=== PATIENT | female | born 1980 | race Caucasian/White ===

== ENCOUNTER → 2018-03-29 | Outpatient (CLI) | payer BC ==
[2014-06-07 07:33] VITALS: BP 162/102
[~2018-03-29] MED LIST: LORA1TAB47 PO; NORE1CAP PO
--- NOTE | 2018-03-29 17:26 | KCIC ---
Indication:Dysmenorrhea. Menorrhagia. TECHNIQUE: Grayscale, color Doppler and spectral waveform images of the pelvis obtained. COMPARISON: None FINDINGS: The uterus is anteverted and measures 10.6 x 3.4 x 4.5 cm (longitudinal, AP, transverse). 2.5 x 1.5 x 2.2 cm hypoechoic mass in the anterior mid uterine body most likely a fibroid. Endometrial stripe measures 2 mm in thickness and is within normal limits. No free pelvic fluid. The right ovary measures 2.7 x 2.5 x 2.2 cm and shows blood flow. The left ovary measures 2.8 x 2.3 x 3.2 cm and shows blood flow. IMPRESSION: 1. Single anterior mid uterine body fibroid. 2. No other acute findings. Electronically signed by: Isaias Hoffman DO (03/29/2018 5:22 PM) [facility]
== END | disposition home or self-care (01) ==
LOC: KCIC US 14:30
PROVIDERS: ATTEND Obstetrics & Gynecology
DX: D25.9 Leiomyoma of uterus, unspecified (principal)
CPT/HCPCS: 76856

== ENCOUNTER → 2018-08-11 | Outpatient (CLI) | payer BC ==
[2014-06-07 07:33] VITALS: BP 162/102
[2018-08-11 15:02] LABS: BILIRUBIN,URINE NEGATIVE (NEG); CLARITY,URINE CLEAR; COLOR,URINE YELLOW; NITRITE,URINE NEGATIVE (NEG); PROTEIN,URINE NEGATIVE (NEG-TRACE); UROBILINOGEN,URINE 0.2 mg/dL (0.2 mg/dL)
[2018-08-11 15:43] LABS: BASO % 1 % (0-3); EOS # 0.1 x10^3/uL (0.0-0.7); EOS % 1 % (0-3); HEMATOCRIT 43.7 % (36.0-47.0); LYMPH # 2.2 x10^3/uL (1.0-4.8); LYMPH % 24 % (24-48); MEAN CORPUSCULAR HEMOGLOBIN 30 pg (25-35); MEAN CORPUSCULAR HGB CONC 34 g/dL (31-37); MEAN CORPUSCULAR VOLUME 87 fL (79-100); MONO # 0.4 x10^3/uL (0.0-1.1); MONO % 5 % (0-9); NEUT # 6.7 x10^3uL (1.8-7.7); NEUT % 71 % (31-73); PLATELET COUNT 303 x10^3/uL (140-400); RED BLOOD COUNT 5.05 x10^6/uL (3.50-5.40); RED CELL DISTRIBUTION WIDTH 11.7 % (11.5-14.5); WHITE BLOOD COUNT 9.5 x10^3/uL (4.0-11.0)
[2018-08-11 16:01] LABS: BACTERIA,URINE FEW /HPF (0-FEW); RBC,URINE OCC /HPF (0-2); SQUAMOUS EPITHELIAL CELL,UR OCC /LPF
[2018-08-11 16:26] LABS: ALBUMIN 3.6 g/dL (3.4-5.0); ALBUMIN/GLOBULIN RATIO 0.8 (1.0-1.7); CALCIUM 9.9 mg/dL (8.5-10.1); CREATININE 1.2 mg/dL (0.6-1.0); POTASSIUM 4.3 mmol/L (3.5-5.1); TOTAL BILIRUBIN 0.2 mg/dL (0.2-1.0); TOTAL PROTEIN 8.2 g/dL (6.4-8.2)
--- NOTE | 2018-08-12 11:03 | NUR ---
FAXED PRE - OP TEST REPORTS TO ;S OFFICE FOR REVIEW [id number] 08/12/2018 AND RECEIVED TRANSMITTAL CONFIRMATION.
== END | disposition home or self-care (01) ==
LOC: SURGPAT 14:30
PROVIDERS: ATTEND Obstetrics & Gynecology
DX: Z01.818 Encounter for other preprocedural examination (principal); Z88.0 Allergy status to penicillin; Z88.2 Allergy status to sulfonamides
CPT/HCPCS: 36415; 80053; 81001; 85025; 87086

== ENCOUNTER 2018-08-19 05:56 | Observation (INO) | payer BC ==
[~2018-08-19] VITALS: Ht 152.4 cm; Wt 78.5 kg
[2018-08-19] VITALS (7 sets, daily range): BP systolic 89–112; BP diastolic 62–76
[2018-08-19] MEDS ORDERED: BUPIVACAINE-EPI 0.25%-1:200000 MPF 30 ML VIAL. ONE (06:23)
[2018-08-19 06:38] LABS: U PREG PATIENT NEGATIVE (NEG)
[2018-08-19] MEDS ORDERED: fentaNYL PF VIAL 100 MCG/2 ML VIAL IV PRN ×2 (07:00)
[2018-08-19] MEDS ORDERED: IV RINGERS,LACTATED 1000ML 1,000 ML IV SCH (07:00)
[2018-08-19] MEDS ORDERED: HYDROmorphone 2 MG/ML VIAL IV PRN (07:00)
[2018-08-19] MEDS ORDERED: MORPHINE SULFATE 2 MG/ML VIAL. IV PRN ×2 (07:00→09:45)
[2018-08-19] MEDS ORDERED: PROCHLORPERAZINE 10 MG/2 ML VIAL. IV PRN (07:00)
[2018-08-19] MEDS ORDERED: ONDANSETRON PF 4 MG/2 ML VIAL. IV PRN ×2 (07:00→09:45)
[2018-08-19] MEDS ORDERED: FAMOTIDINE 20 MG/2 ML VIAL ONE (07:01)
[2018-08-19] MEDS ORDERED: diphenhydrAMINE 50 MG/ML VIAL ONE (07:01)
[2018-08-19] MEDS ORDERED: DEXAMETHASONE SOD PHOS 4 MG/ML VIAL ONE (07:01)
[2018-08-19] MEDS ORDERED: ONDANSETRON PF 4 MG/2 ML VIAL. ONE (07:01)
[2018-08-19] MEDS ORDERED: LIDOCAINE 2% PF 5 ML VIAL. ONE (07:01)
[2018-08-19] MEDS ORDERED: ROCURONIUM 50 MG/5 ML VIAL. ONE (07:01)
[2018-08-19] MEDS ORDERED: PROPOFOL 20 ML IV ONE (07:01)
[2018-08-19] MEDS ORDERED: KETOROLAC 30 MG/ML INJ FOR OR. INJ ONE (07:01)
[2018-08-19] MEDS ORDERED: fentaNYL PF VIAL 100 MCG/2 ML VIAL ONE (07:01)
[2018-08-19] MEDS ORDERED: MIDAZOLAM HCL/PF 2 MG/2 ML VIAL. ONE (07:01)
[2018-08-19] MEDS ORDERED: CLINDAMYCIN 900MG PREMIX 50 ML IV ONE (07:29)
[2018-08-19] MEDS ORDERED: AZTREONAM IV Push 1 GM VIAL. IVP PRN (07:30)
[2018-08-19] MEDS ORDERED: CLINDAMYCIN 900MG PREMIX 50 ML IV PRN (07:30)
[2018-08-19] MEDS ORDERED: GLYCOPYRROLATE 1 MG/5 ML VIAL. ONE (09:21)
[2018-08-19] MEDS ORDERED: NEOSTIGMINE METHYLSULFATE 5 MG/5 ML SYRINGE. ONE (09:21)
[2018-08-19] MEDS ORDERED: SEVOFLURANE 61 TO 120 MINUTES. IH ONE (09:23)
[2018-08-19] MEDS ORDERED: ALBUTEROL SULFATE 2.5 MG/3 ML NEBU. ONE (09:33)
--- NOTE | 2018-08-19 09:39 | PDOC ---
BRIEF OPERATIVE NOTE Date: Aug 19, 2018 Pre-Op Diagnosis menorrhagia, uterine fibroids Post-Op Diagnosis same Procedure Performed LAVH with bilateral salpingectomy Surgeon Dr. Lesley Baires Mediation Commissioner [facility] Anesthesiologist Dr. Aguero Anesthesia Type: General Blood Loss 25cc IV Fluid 1L crystalloid Urine Output 550cc clear via mcconnell Specimens Obtained cervix, uterus with bilateral tubes Findings mildly enlarged fibroid uterus, normal bilateral tubes and ovaries Complications none Operative Note [id number] LESLEY BAIRES MD Aug 19, 2018 09:39
[2018-08-19] MEDS ORDERED: MAG HYDROX/ALUMINUM HYD/SIMETH 30 ML ORAL.SUSP PO PRN (09:45)
[2018-08-19] MEDS ORDERED: MAGNESIUM HYDROXIDE 2,400 MG/30 ML ORAL.SUSP. PO PRN (09:45)
[2018-08-19] MEDS ORDERED: 0.9 % SODIUM CHLORIDE 10 ML DISP.SYRIN. IV PRN (09:45)
[2018-08-19] MEDS ORDERED: diphenhydrAMINE 50 MG/ML VIAL IV PRN (09:45)
[2018-08-19] MEDS ORDERED: SIMETHICONE 80 MG TAB.CHEW PO PRN (09:45)
[2018-08-19] MEDS ORDERED: ALBUTEROL SULFATE 2.5 MG/3 ML NEBU. CONT NEB ONE (09:45)
[2018-08-19] MEDS ORDERED: oxyCODONE/APAP 5/325 1 TAB TABLET PO PRN (09:45)
[2018-08-19] MEDS ORDERED: ZOLPIDEM 5 MG TABLET. PO PRN (09:45)
[2018-08-19] MEDS ORDERED: HYDROcodone/APAP 5/325MG 1 TAB TABLET PO PRN (09:45)
[2018-08-19] MEDS ORDERED: LACTULOSE 20 GM/30 ML SOLUTION. PO PRN (09:45)
[2018-08-19] MEDS ORDERED: NALOXONE 0.4 MG/ML VIAL. IV PRN (09:45)
[2018-08-19] MEDS ORDERED: CALCIUM CARBONATE 500 MG TAB.CHEW PO PRN (09:45)
[2018-08-19] MEDS ORDERED: KETOROLAC 30 MG/ML VIAL. IV PRN (09:45)
--- NOTE | 2018-08-19 13:00 | OP ---
DATE OF SURGERY: 08/19/2018 PREOPERATIVE DIAGNOSES: Menorrhagia with uterine fibroids. POSTOPERATIVE DIAGNOSES: Menorrhagia with uterine fibroids. PROCEDURE: Laparoscopic-assisted vaginal hysterectomy with bilateral salpingectomy. SURGEON: Zane Edwards M.D. THERAPEUTIC RIDING INSTRUCTOR: nurse Reymundo. ANESTHESIOLOGIST: Dr. Aguero. ANESTHESIA: General. ESTIMATED BLOOD LOSS: 25 mL. URINE OUTPUT: 550 mL clear via Moore catheter. INTRAVENOUS FLUIDS: One liter of Crystalloid. SPECIMENS: Cervix, uterus and bilateral tubes. FINDINGS: Mildly enlarged fibroid uterus. Normal bilateral tubes with evidence of prior tubal ligation and normal ovaries. COMPLICATIONS: None. DESCRIPTION OF PROCEDURE: This patient was taken to the operating room, where general anesthesia was placed. The patient was placed in a dorsal lithotomy position in [facility]. The patient's abdomen and vagina were both prepped and draped in the normal sterile fashion and a Moore catheter had been inserted under sterile technique. Upon my arrival, a timeout was performed. Once everyone agreed and she had received her preoperative antibiotics, a bivalve speculum was placed in the patient's vagina. Single-tooth tenaculum was used to grasp the anterior lip of the cervix. A 10 mL of 0.25% Marcaine with epinephrine was used to circumferentially inject around the cervix for both hemodissection and hemostatic purposes later. The Valtchev uterine manipulator was then placed through the endocervical os, locked on the single tooth tenaculum and the bivalve speculum was then removed. Top gloves were discarded and changed. Attention was then turned to the abdomen, where a small supraumbilical skin incision was made with the scalpel. A curved Rekha was used to dissect through the subcuticular layer to the fascia. The 5-mm Visiport was used to directly enter the abdominal cavity. Opening patient pressure was 4 mmHg. Carbon dioxide gas was used to then appropriately insufflate the abdominal cavity to maintain a pressure of 15 mmHg. The patient was placed in Trendelenburg position. A right lower quadrant and left lower quadrant ports were placed after transilluminating the abdomen, finding an area clear of any vasculature and making sure there were no adhesions on the inside, which there were none on the anterior abdominal wall on either side, making an incision and placing the 5-mm atraumatic disposable trocar under direct visualization. Once they were in, the 4-5 mL of air was placed in the trocar cuff to hold it in place. I then did move the camera to one of the lateral ports to look at the umbilical port. It was clear, so that one was insufflated with the 4-5 mL of air in the cuff as well. Camera was placed back in the midline. The patient was in the Trendelenburg and the left tube and ovary were elevated. The ureter was coursing low, going above the ovary, below the tube, doing a salpingectomy, doing the tubal ligation and it did come out, so we just removed it through the port and crossing the left uterine-ovarian pedicle and the left round ligament. This was done exactly the same on the right side, elevating the right tube and ovary, again the ovary was normal, the patient wished to keep her ovaries if normal, so going above the ovary, below the tube, doing a salpingectomy, again removing it, doing the tubal ligation and it was thin and came off in a piece, so it was removed very easily through one of the 5-mm trocars and then crossing the right uterine-ovarian pedicle and the right round ligament. The bladder flap was then created sharply by elevating and using the monopolar hook and pulling it down gently. Once the bladder was down, the uterine vessels were obtained on both sides and hugging the cervix and uterus, going down to the level of the uterosacrals bilaterally. Once this was done and the uterus was completely free and blanched, all instruments were removed from the abdomen and attention was turned vaginally. The single tooth and Valtchev were removed. A weighted speculum was placed in the patient's vagina. The legs were elevated and Thyroid Garry clamps were placed on the anterior and posterior lips of the cervix respectively. A scalpel was used to make a circumferential incision in the cervix. An open Ray-Murray 4 x 4 was used to gently push up the anterior bladder peritoneum. The cervix was elevated and the posterior cul-de-sac was sharply entered with the Asencio scissors. A #0 Vicryl stitch was used to secure the posterior peritoneum here to the vaginal cuff. It was tagged with a curved Rekha clamp and the needle was cut and passed off. The short weighted speculum was removed and replaced with the long weighted Ray speculum in the posterior cul-de-sac. Curved Garth clamps x 2 were placed on the patient's left uterosacral ligament, where they were doubly clamped with curved Heaneys, cut with the curved Asencio scissors and suture ligated x 2 with 0 Vicryl. Second one was taken through the vaginal cuff, securing uterosacral ligament to the vaginal cuff, tagging it with a straight Rekha clamp and cutting and passing the needle off. This was done exactly the same on the patient's right side, double clamping the uterosacrals with curved Garth's, cutting with Asencio scissors, suture ligating x 2 with 0 Vicryl, taking the second one through the vaginal cuff, securing the uterosacral ligament to the vaginal cuff, tagging it with a straight Rekha clamp and cutting and passing the needle off. Once this was done, the remaining pedicles on both sides were delineated with the right angle clamp the mixture and the vaginal LigaSure was used to cauterize and cut on both sides and free it up. Cervix and uterus were delivered in total and passed off for permanent pathology. The anterior Ray-Murray was taken out of the anterior cul-de-sac. It was dry. The anterior bladder peritoneum was grasped with a long Allis. A sponge stick was used to examine all the pedicles; they appeared hemostatic. The long Ray was removed from the posterior cul-de-sac and the short weighted vaginal speculum was placed back in the vagina. Once this was done, 2-0 Vicryl was taken through the anterior bladder peritoneum, left uterosacral ligament, posterior peritoneum and right uterosacral ligament, thus closing the peritoneum in a pursestring like fashion. The right and left uterosacral tags were clipped at this point as well. Another full-length 2-0 Vicryl was used to close the cuff in an [id number] running locked fashion and it was tied to that posterior cuff tag and cut. Sponge stick was used to examine the vaginal cuff. It was hemostatic. So, all instruments were removed from the vagina. All sponge, lap and needle counts were correct x 2 by OR personnel below before going above. At this point, all gloves were discarded and changed. Attention was then turned back above for a second look. The patient was placed back in Trendelenburg. Gas was reinsufflated and copious irrigation revealed hemostasis. Tisseel was placed over the remaining cuff. The right and left lower quadrant ports, the trocar balloons were taken down, the 4-5 mL of air was removed from both of them. They were taken out under direct visualization. These too were hemostatic. The cuff remained hemostatic. So, the gas was removed from the trocar in the midline and the air was taken out of the cuff as well here. Once the gas was removed, the midline trocar was removed. All three port sites were closed with 4-0 nylon at the skin and injected with 10 mL of local. The patient was then awakened from anesthesia and is now being brought to recovery room in stable condition. ZANE EDWARDS MD DR: RYAN/darrel JOB#: [id number] / [id number]
--- NOTE | 2018-08-19 17:30 | NUR ---
talked with dr granados pt may leave this evening to keep appt take meds as prescribed that she has at home. no questions on home care by pt
--- NOTE | 2018-08-23 15:06 | PATHOLOGY ---
[facility] Accession Number: [id number] . 01 Material submitted: . uterus - CERVIX, UTERUS, BILATERAL FALLOPIAN TUBES . 01 Clinical history: . Menorrhagia, uterine fibroids . 02 Diagnosis: Uterus and detached bilateral fallopian tubes, laparoscopic assisted vaginal hysterectomy with bilateral salpingectomy: - Leiomyomas (3), subserosal and intramural, the largest measuring 1.5 cm (uterine weight 86 g). - Mild chronic cervicitis with focal squamous metaplasia. - Proliferative endometrium. - Adenomyosis, uterine corpus, subbasal, focal. - Congestion of bilateral fallopian tubes. (JPM:osei; 08/23/2018) QMS/08/23/2018 . 02 Comment: There is no evidence of hyperplasia or malignancy. (JPM:osei; 08/23/2018) . 02 Electronically signed: . Antony Hardy MD, Pathologist NPI- [id number] . 01 Gross description: . The specimen is received in formalin, labeled ", [place], Tosin, cervix, uterus, bilateral fallopian tubes" is an unopened, pyriform uterine corpus with attached cervix weighing 86 g and measuring 8.0 x 4.5 x 3.5 cm. Also received are two detached, fimbriated fallopian tubes segments measuring 4.2 cm in length with an average 0.3 cm diameter (fallopian tube #1) and 4.5 cm in length with an average 0.3 cm diameter (fallopian tube #2). The serosa is smooth and nodular. The anterior paracervical soft tissue is inked blue. The ectocervix has a surface diameter of 3.0 x 3.0 cm and a 1.0 cm slit-like os. The ectocervical mucosa is mora-pink and smooth with no discrete lesions. The 3.0 cm long x 1.4 cm wide endocervical canal is covered with mora-pink, corrugated mucosa. The endometrial cavity is triangular, 4.5 cm long x 2.0 cm wide, and covered with mora-pink endometrium of 0.2 cm thickness. There are no polyps or masses identified. There are two subserosal and one intramural nodules ranging 1.1 cm to 1.5 cm with mora-white, whorled and trabeculated cut surfaces. The nodules show no evidence of central degeneration. The mora-pink myometrium is mildly trabeculated is 1.6 cm in thickness. The bilateral fallopian tube has pink-mora serosa. The fimbriae are normal in configuration. The lumen is patent throughout. Cut Pressman tissue submitted as follows: A1. Cervix, anterior and posterior. (Anterior = blue ink) A2-A3. Anterior endomyometrium. (From lower uterine segment to fundus) A4-A5. Posterior endomyometrium. (From fundus to lower uterine segment) A6. Anterior mural nodules. A7. Posterior subserosal nodule. A8. Right fallopian tube. A9. Left fallopian tube. ([facility]; 08/20/2018) SHS/SHS . 02 Pathologist provided ICD-10: D25.1, D25.2, N72, N80.0 . 02 CPT . 365155 Specimen Comment: A courtesy copy of this report has been sent to Specimen Comment: [phone], . Specimen Comment: Report sent to / DR FRAZIER Performed at: 01 [facility] [address], [place] [id number] MD Noman Arzola MD Phone: [phone] Performed at: 02 [facility] [address], [place] [id number] MD Antony Hardy MD Phone: [phone]
== END 2018-08-19 19:00 | disposition home or self-care (01) ==
LOC: SURG 05:56 → 3 NORTH 09:40
PROVIDERS: ADMIT Obstetrics & Gynecology; ATTEND Obstetrics & Gynecology
PROC: 0UT9FZZ Resection of Uterus, Via Natural or Artificial Opening With Percutaneous Endoscopic Assistance (ICD-10-PCS; principal; 2018-08-19 07:30)
DX: N92.0 Excessive and frequent menstruation with regular cycle (principal); D25.9 Leiomyoma of uterus, unspecified; N92.6 Irregular menstruation, unspecified; Z98.51 Tubal ligation status; Z01.818 Encounter for other preprocedural examination; Z98.890 Other specified postprocedural states
CPT/HCPCS: 36415; 58550; 81025; 86850; 86900; 86901; 94640; A7015; G0378; G0379; J1100; J1200; J1885; J2001; J2250; J2704; J2710; J3010; J3490; J7030; J7120; J7613; J2405